=== PATIENT | male | born 1985 | race Asian ===

== ENCOUNTER 2017-08-04 19:27 | Emergency (ER) | payer SELFPAY ==
[2017-08-04 20:41] LABS: ABS Basophils 0 10^3/ul (0-0.2); ABS Eosinophils 0 10^3/ul (0-0.6); ABS Lymphocytes 1.2 10^3/ul (1.0-4.8); ABS Monocytes 0.5 10^3/ul (0-0.8); ABS Neutrophils 7.1 10^3/ul (1.5-7.7); ABS Nucleated RBC 0.01 10^3/ul; Eosinophil % 0 % (0-6); Hematocrit 47 % (42-52); Hemoglobin 16.2 g/dl (14.0-18.0); Lymphocyte % 13.7 % (25-47); Mean Corpuscular HGB Conc 35 g/dl (31-36); Mean Corpuscular Hemoglobin 31 pg (27-31); Mean Corpuscular Volume 91 fL (80-94); Mean Platelet Volume 7 um3 (7.4-10.4); Nucleated Red Blood Cells % 0.1; Platelet Count 324 10^3/ul (150-450); Red Blood Count 5.18 10^6/ul (4.0-5.4); Red Cell Distribution Width 13 % (10.5-15); White Blood Count 8.9 10^3/ul (3.5-10.8)
[2017-08-04 20:56] LABS: EGFR Non-African American 97.8 (>60)
[2017-08-04] MEDS ORDERED: Iohexol 300* (CONTRAST) 10 ML SDV IV ONE (21:38)
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
[2017-08-04 23:25] VITALS: BP 111/65
== END 2017-08-04 23:25 | disposition home or self-care (01) ==
LOC: ED 19:27
DX: R07.9 Chest pain, unspecified (principal); F41.9 Anxiety disorder, unspecified; R07.89 Other chest pain; R00.0 Tachycardia, unspecified; Z04.1 Encounter for examination and observation following transport accident
CPT/HCPCS: 36415; 71260; 80053; 83605; 83735; 84484; 85025; 85730; 93005; 99282; Q9967

== ENCOUNTER 2018-12-20 10:13 | Emergency (ER) | payer OTHER ==
[2018-12-20] MEDS ORDERED: Ondansetron INJ* 2 MG/ML VIAL IV ONE (10:38)
[2018-12-20] MEDS ORDERED: Morphine 4 MG/ML VIAL (1 ml) 4 MG/ML VIAL IV ONE (10:38)
[2018-12-20] MEDS ORDERED: Ketorolac INJ* 30 MG/ML 1 ML VIAL IM ONE (10:38)
--- NOTE | 2018-12-20 10:45 | ED ---
Abdominal Pain/Male - HPI Summary HPI Summary: Patient is an otherwise healthy 33-year-old male presenting to the ED with severe left-sided flank pain rated 9/10 which was acute onset this morning and has remained constant. He is also endorsing suprapubic tenderness. Left-sided flank pain radiates to the LLQ and down into the groin. No history of kidney stones. No history of UTI. Takes no medications. Endorses nausea, but no episodes of emesis yet. Denies any constipation or diarrhea. Denies any other abdominal pain throughout. Denies any fevers, sweats, chills. Symptoms are worse with palpation, better with rest. Denies any UTI symptoms or course hematuria. - History of Current Complaint Chief Complaint: EDFlankPain Stated Complaint: POSS KIDNEY STONE PER PT Time Seen by Provider: 12/20/18 10:32 Hx Obtained From: Patient Onset/Duration: Sudden Onset Timing: Constant Severity Initially: Severe Severity Currently: Severe Pain Intensity: 8 Pain Scale Used: 0-10 Numeric Location: Flank Radiates: Yes Radiates to: LLQ, Inguinal Character: Sharp, Burning Aggravating Factor(s): Nothing Alleviating Factor(s): Position Associated Signs And Symptoms: Positive: Negative, Back Pain, Nausea. Negative : Diaphoresis, Fever, Cough, Chest Pain, Constipation, Blood in Stool, Urinary Symptoms, Decreased Appetite, Vomiting, Diarrhea - Risk Factors Testicular Torsion: Negative Cardiac Risk Factors: Negative - Allergies/Home Medications Allergies/Adverse Reactions: Allergies Allergy/AdvReac Type Severity Reaction Status Date / Time No Known Allergies Allergy Verified 08/04/17 19:40 PMH/Surg Hx/FS Hx/Imm Hx Previously Healthy: Yes Endocrine/Hematology History: Denies: Hx Anticoagulant Therapy, Hx Blood Disorders Cardiovascular History: Reports: Other Cardiovascular Problems/Disorders - tachycardia and chest pain of unknown origin x years Respiratory History: Denies: Hx Asthma, Hx Chronic Obstructive Pulmonary Disease (COPD), Hx Pneumonia, Hx Pulmonary Edema GI History: Reports: Other GI Disorders - H/o h. pylori years ago Musculoskeletal History: Denies: Hx Arthritis Sensory History: Reports: Hx Contacts or Glasses Opthamlomology History: Reports: Hx Contacts or Glasses Psychiatric History: Reports: Hx Anxiety - not treated - Immunization History Hx Pertussis Vaccination: No Immunizations Up to Date: Yes Infectious Disease History: No Infectious Disease History: Denies: Traveled Outside the [place] in Last 30 Days - Family History Known Family History: Positive: None - Social History Occupation: Employed Full-time Lives: With Family Alcohol Use: None Hx Substance Use: No Substance Use Type: Reports: None Hx Tobacco Use: No Smoking Status (MU): Never Smoked Tobacco Review of Systems Constitutional: Negative Negative: Fever, Chills, Fatigue Negative: Palpitations, Chest Pain Negative: Shortness Of Breath, Cough Positive: see HPI, flank pain. Negative: burning, dysuria, discharge, incontinence, pain, urgency Negative: Rash, Bruising Neurological: Negative All Other Systems Reviewed And Are Negative: Yes Physical Exam Triage Information Reviewed: Yes Vital Signs On Initial Exam: Initial Vitals Temp Pulse Resp BP Pulse Ox 96.3 F 128 18 122/102 96 12/20/18 10:28 12/20/18 10:28 12/20/18 10:28 12/20/18 10:28 12/20/18 10:28 Vital Signs Reviewed: Yes Appearance: Positive: Well-Appearing, Well-Nourished Skin: Positive: Warm, Skin Color Reflects Adequate Perfusion Head/Face: Positive: Normal Head/Face Inspection Eyes: Positive: EOMI, Conjunctiva Clear Neck: Positive: Supple, No Lymphadenopathy Respiratory/Lung Sounds: Positive: Clear to Auscultation, Breath Sounds Present Cardiovascular: Positive: RRR, Pulses are Symmetrical in both Upper and Lower Extremities Abdomen Description: Positive: Nontender, Soft, CVA Tenderness (L). Negative: CVA Tenderness (R), Hepatomegaly, McBurney's Point Tenderness, Peritoneal Signs Musculoskeletal: Positive: Normal, Strength/ROM Intact Neurological: Positive: Speech Normal Psychiatric: Positive: Normal, Affect/Mood Appropriate Diagnostics - Vital Signs Vital Signs Temp Pulse Resp BP Pulse Ox 12/20/18 10:28 96.3 F 128 18 122/102 96 - Laboratory Result Diagrams: 12/20/18 11:00 12/20/18 11:00 Lab Statement: Any lab studies that have been ordered have been reviewed, and results considered in the medical decision making process. - CT CT abd/pelvis CT Interpretation Completed By: ED Physician - Rosalia Emerson PA-C, Radiologist - IMPRESSION: Tiny calculi in the urinary bladder which may represent recently passed calculi. Mild left hydronephrosis and hydroureter is noted. Abdominal Pain Male Course/Dx - Course Course Of Treatment: During the course of treatment, the patient is evaluated for left-sided flank pain. He endorses this pain is 9/10 on arrival accompanied with nausea without vomiting. He denies any fevers, sweats, chills. On arrival into the ED his temperature is 96.3, tachycardia at 128, respirations 18 and BP of 122/102. Patient appears in distress and diaphoretic. On physical examination, lungs CTA, tachycardic with regular rhythm. Left CVA tenderness and left lower quadrant tenderness on light palpation. No pain throughout the abdominal area on my palpation otherwise. He is given Zofran, morphine, Toradol and normal saline. CT abdomen/pelvis obtained:IMPRESSION: Tiny calculi in the urinary bladder which may represent recently passed. calculi. Mild left hydronephrosis and hydroureter is noted. Due to passed stone, patient will be discharged with pain control. UA obtained which shows no infection. Patient denies any pain to the left flank, however is is now endorsing mild 2/10 pain to the left lower quadrant. This is consistent with recently passed stone and cramping. He is given a prescription for tramadol. He will follow up with urology if any symptoms worsen. He is given a strainer upon discharge. - Diagnoses Differential Diagnosis/HQI/PQRI: Other - Kidney stone, UTI, flank pain, abdominal pain, nausea Provider Diagnoses: Kidney stone Discharge - Sign-Out/Discharge Documenting (check all that apply): Patient Departure Patient Received Moderate/Deep Sedation with Procedure: No - Discharge Plan Condition: Stable Disposition: HOME Prescriptions: traMADol TAB* [Ultram*] 50 mg PO Q8H PRN #6 tab MDD 3 PRN Reason: Pain Patient Education Materials: Kidney Stones (ED) Referrals: [facility] - [facility] [Primary Care Provider] - Jayant Miramontes MD [Medical Doctor] - Additional Instructions: Please follow up with Dr. Miramontes if you develop any worsening symptoms Tramadol as needed for pain control - Billing Disposition and Condition Condition: STABLE Disposition: Home
[2018-12-20] MEDS: NS 0.9% 1000 ML** 2,000 ML IV ONE (11:01)
[2018-12-20 11:07] LABS: ABS Lymphocytes 1.5 10^3/ul (1.0-4.8); ABS Monocytes 0.5 10^3/ul (0-0.8); ABS Neutrophils 8.9 10^3/ul (1.5-7.7); Eosinophil % 0.2 %; Hematocrit 48 % (42-52); Hemoglobin 15.9 g/dL (14.0-18.0); Lymphocyte % 13.4 %; Mean Corpuscular HGB Conc 33 g/dL (31-36); Mean Corpuscular Hemoglobin 30 pg (27-31); Mean Corpuscular Volume 92 fL (80-94); Mean Platelet Volume 7.2 fL (7.4-10.4); Nucleated Red Blood Cells % 0.1; Platelet Count 283 10^3/uL (150-450); Red Blood Count 5.25 10^6 /uL (4.18-5.48); Red Cell Distribution Width 13 % (10.5-15); White Blood Count 10.9 10^3/uL (3.5-10.8)
[2018-12-20 11:25] VITALS: BP 142/93
[2018-12-20 11:27] LABS: ALT 39 U/L (7-52); AST 24 U/L (13-39); Albumin 4.9 g/dL (3.2-5.2); Alkaline Phosphatase 64 U/L (34-104); Anion Gap 9 mmol/L (2-11); BUN/Creatinine Ratio 12.5 (8-20); Blood Urea Nitrogen 14 mg/dL (6-24); C Reactive Protein < 1.00 mg/L (<8.01); CO2 Carbon Dioxide 25 mmol/L (22-32); Calcium 9.8 mg/dL (8.6-10.3); Chloride 104 mmol/L (101-111); EGFR African American 91.9 (>60); Globulin 2.5 g/dL (2-4); Glucose 136 mg/dL (70-100); Magnesium 1.9 mg/dL (1.9-2.7); Potassium 3.8 mmol/L (3.5-5.0); Sodium 138 mmol/L (135-145); Total Protein 7.4 g/dL (6.4-8.9)
[2018-12-20 13:05] LABS: Urine Appearance Clear; Urine Bacteria Absent (Absent); Urine Bilirubin Negative (Negative); Urine Blood 1+ (Negative); Urine Color Yellow; Urine Glucose Negative (Negative); Urine Ketones Trace (Negative); Urine Nitrite Negative (Negative); Urine Protein Negative (Negative); Urine Red Blood Cell 1+(3-5/hpf) (Absent); Urine Specific Gravity 1.011 (1.010-1.030); Urine Urobilinogen Negative (Negative); Urine White Blood Cell Trace(0-5/hpf) (Absent)
== END 2018-12-20 13:33 | disposition home or self-care (01) ==
LOC: ED 10:13
DX: N21.0 Calculus in bladder (principal); N13.30 Unspecified hydronephrosis; R11.0 Nausea; R00.0 Tachycardia, unspecified; R61 Generalized hyperhidrosis
CPT/HCPCS: 36415; 74176; 80053; 81003; 81015; 83605; 83690; 83735; 85025; 86140; 87086; 96361; 96372; 96374; 96375; 99283; J1885; J2270; J2405

== ENCOUNTER 2019-04-18 16:44 | Emergency (ER) | payer OTHER ==
--- OUTSIDE RECORDS SUMMARY | 2019-04-18 16:49 | XMS REPORT | Continuity of Care Document ---
:1985 External Reference #:[id number] Author Name Alex Sarkar, DO Address [address] [place] [address] Care Team Providers Name Role Phone Lien Goddard MD Care Team Information Bell Valet [phone] Problems Active Problems Provider Date Gastroesophageal reflux disease Meagan Mera PA-C Onset: 04/01/2019 Sore throat symptom Meagan Mera PA-C Onset: 03/01/2019 Abdominal pain Meagan Mera PA-C Onset: 03/01/2019 Epigastric pain Trace Bolden MD Onset: 09/26/2016 Social History Type Date Description Comments Sex Unknown Tobacco Use Start: Unknown Patient has never smoked Smoking Status Reviewed: 04/01/19 Patient has never smoked Allergies, Adverse Reactions, Alerts Description No Known Drug Allergies Medications Active Medications SIG Qnty Indications Ordering Provider Date Pantoprazole Sodium 1 by mouth 30tabs R10.10 Trace Bolden, 03/01/2019 20mg every day Tablets DR Immunizations Description No Information Available Vital Signs Date Vital Result Comment 04/01/2019 7:50am Height 66 inches 5'6" Weight 132.00 lb BP Systolic 128 mmHg BP Diastolic 87 mmHg Heart Rate 108 /min BMI (Body Mass Index) 21.3 kg/m2 03/01/2019 9:41am Height 66 inches 5'6" Weight 132.00 lb BP Systolic 133 mmHg BP Diastolic 93 mmHg Heart Rate 120 /min BMI (Body Mass Index) 21.3 kg/m2 Results Test Date Facility Test Result H/L Range Note Laboratory test 04/06/2019 [facility] Clotest SEE RESULT 1 finding BELOW Laboratory test 04/01/2019 [facility] Surgical SEE RESULT 2, 3 finding Pathology BELOW 1 SEE RESULT BELOW Name: JHONATAN OSBORN : [address]: Alex Sarkar DO Acct: [id number] Unit: [id number] AGE: 33 Location: [facility] Re04/06/19 SEX: M Status: DEP REF SPEC: [id number] DALY: 04/06/19-[address] [facility] [address]: Aelx Sarkar DO REQ: [id number] RECD: 04/06/19-3 STATUS: NOHEMI ANGELO DR: Kamille Zheng [employer]ANCE OFFICER _ SOURCE: GAS ANTRUM SPDESC: ORDERED: Clotest Procedure Result Reported Site Clotest Final 04/07/19- 0656 ML Clotest Negative * ML - Main Lab . END OF REPORT DEPARTMENT OF PATHOLOGY, [address] [place] [address] Piero Gonzalez M.D. Director [facility] # [id number] SEE RESULT BELOW Name: ANURAGJHONATAN : [address]: Alex Sarkar DO Acct: [id number] Unit: [id number] AGE: 33 Location: [facility] Re04/06/19 SEX: M Status: DEP REF SPEC: [id number] DALY: 04/06/19-[address]: Alex Sarkar DO REQ: [id number] RECD: 04/06/19-130 STATUS: NOHEMI ANGELO DR: Kamille Zheng [employer] FINANCE OFFICER _ SOURCE: GAS ANTRUM SPDESC: ORDERED: Clotest Procedure Result Reported Site Clotest Final 04/07/19- 655 ML Clotest Negative * ML - Main Lab . END OF REPORT DEPARTMENT OF PATHOLOGY, [address] [place] [address] Piero Gonzalez M.D. Director [facility] # [id number] 2 [id number] SEE RESULT BELOW Name: JHONATAN OSBORN : [address]: Alex Sarkar DO Acct: [id number] Unit: [id number] AGE: 33 Location: [facility] Re04/06/19 SEX: M Status: DEP REF SPEC: [id number] DALY: 04/01/19- SUBM DR: Alex Sarkar DO REQ: [id number] RECD: 04/06/19-1249 STATUS: CARON ANGELO DR: Kamille Zheng [employer] FINANCE OFFICER _ ORDERED: LEVEL 4/2 COMMENTS: [id number] FINAL DIAGNOSIS 1. Duodenum, biopsy: -- Benign small intestinal mucosa with no significant pathologic abnormalities. -- No evidence of villous blunting or increased intraepithelial lymphocytes. 2. Esophagus, distal, biopsy: -- Benign squamous and columnar-type mucosa with chronic inflammation. -- Intestinal metaplasia is absent. -- Dysplasia is absent. CLINICAL HISTORY Gastroesophageal reflux disease POST-OPERATIVE DIAGNOSIS EGD: esophagus ??? 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 normal; biopsy; duodenum ??? normal; biopsy GROSS DESCRIPTION 1. The specimen is received in formalin labeled, Biopsy Duodenum, and consists of a 0.5 x 0.5 x 0.1 cm aggregate of coker-pink irregular soft tissue fragments which is submitted entirely in one cassette. 2. The specimen is received in formalin labeled, Biopsy Distal Esophagus, and consists of a 0.5 x 0.5 x 0.1 cm aggregate of coker-pink irregular soft tissue fragments which is CONTINUED ON NEXT PAGE DEPARTMENT OF PATHOLOGY, [address] [place] [address] Piero Gonzalez M.D. Director [facility] # [id number] RUN DATE: 04/07/19 [facility] LAB LIVE PAGE 2 Patient: JHONATAN OSBORN [id number] (Continued) GROSS DESCRIPTION (Continued) submitted entirely in one cassette. Signed by and Reported on: Dania Finch MD 04/07/19 1148 END OF REPORT DEPARTMENT OF PATHOLOGY, [address] [place] [address] Piero Gonzalez M.D. Director [facility] # [id number] SEE RESULT BELOW Name: JHONATAN OSBORN : [address]: Alex Sarkar DO Acct: [id number] Unit: [id number] AGE: 33 Location: [facility] Re04/06/19 SEX: M Status: DEP REF SPEC: [id number] DALY: 04/01/19- [facility] DR: Alex Sarkar DO REQ: [id number] RECD: 04/06/19124 STATUS: CARON ANGELO DR: Kamille Zheng [employer] FIN[employer] OFFICER _ ORDERED: LEVEL 4/2 COMMENTS: [id number] FINAL DIAGNOSIS 1. Duodenum, biopsy: -- Benign small intestinal mucosa with no significant pathologic abnormalities. -- No evidence of villous blunting or increased intraepithelial lymphocytes. 2. Esophagus, distal, biopsy: -- Benign squamous and columnar-type mucosa with chronic inflammation. -- Intestinal metaplasia is absent. -- Dysplasia is absent. CLINICAL HISTORY Gastroesophageal reflux disease POST-OPERATIVE DIAGNOSIS EGD: esophagus ??? 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 normal; biopsy; duodenum ??? normal; biopsy GROSS DESCRIPTION 1. The specimen is received in formalin labeled, Biopsy Duodenum, and consists of a 0.5 x 0.5 x 0.1 cm aggregate of coker-pink irregular soft tissue fragments which is submitted entirely in one cassette. 2. The specimen is received in formalin labeled, Biopsy Distal Esophagus, and consists of a 0.5 x 0.5 x 0.1 cm aggregate of coker-pink irregular soft tissue fragments which is CONTINUED ON NEXT PAGE DEPARTMENT OF PATHOLOGY, [address] [place] [address] Piero Gonzalez M.D. Director [facility] # [id number] RUN DATE: 04/07/19 [facility] LAB LIVE PAGE 2 Patient: JHONATAN OSBORN [id number] (Continued) GROSS DESCRIPTION (Continued) submitted entirely in one cassette. Signed by and Reported on: Dania Finch MD 04/07/19 1148 END OF REPORT DEPARTMENT OF PATHOLOGY, [address] [place] [address] Piero Gonzalez M.D. Director [facility] # [id number] Procedures Description No Information Available Medical Devices Description No Information Available Encounters Type Date Location Provider Dx Diagnosis Office Visit 04/01/2019 [facility]astroenterology Meagan Connor R10.10 Upper abdominal 8:00a [facility], pain, unspecified PA-C K21.9 Gastro-esophageal reflux disease without esophagitis Office 03/01/2019 Gastroenterology Meagan Connor R10.10 Upper abdominal Visit 10:00a [facility], PA-C pain, unspecified R07.0 Pain in throat Assessments Date Code Description Provider 04/01/2019 R10.10 Upper abdominal pain, unspecified [facility], PA -C 04/01/2019 K21.9 Gastro-esophageal reflux disease without [facility], PA-C esophagitis 03/01/2019 R10.10 Upper abdominal pain, unspecified [facility], PA -C 03/01/2019 R07.0 Pain in throat Meagan L. [facility], PA-C Plan of Treatment No Information Available Functional Status Description No Information Available Mental Status Description No Information Available Referrals Description No Information Available
--- OUTSIDE RECORDS SUMMARY | 2019-04-18 16:49 | XMS REPORT | Continuity of Care Document ---
:1985 External Reference #:[id number] Author Name Meagan Mera PA-C Address [address] [place] [address] Care Team Providers Name Role Phone Lien Goddard MD Care Team Information Computer Game Designer [phone] Problems Active Problems Provider Date Gastroesophageal reflux [...] Trace Bolden, 03/01/2019 20mg every day Tablets Ranitidine HCL Unknown 150mg Tablets Immunizations Description No Information Available Vital Signs [...] BMI (Body Mass Index) 21.3 kg/m2 Results Description No Information Available Procedures Description No Information Available Medical Devices Description No Information Available Encounters Type Date Location Provider Dx Diagnosis Office Visit 03/01/2019 Gastroenterology Meagan Connor R10.10 Upper abdominal 10:00a [facility], pain, unspecified [facility] R07.0 Pain in throat Assessments Date Code Description Provider 04/01/2019 R10.10 Upper abdominal pain, unspecified [facility] Berrios 04/01/2019 K21.9 Gastro-esophageal reflux disease without Meagan Mera PA-C esophagitis 03/01/2019 R10.10 Upper abdominal pain, unspecified [facility] 03/01/2019 R07.0 Pain in throat Meagan Mera PA-C Plan of Treatment Future Appointment(s):04/06/2019 9:30 am - Alex Sarkar DO at [facility] Apitno2604/01/2019 - PAVEL Berrios10.10 Upper abdominal pain, ougjcaddocpI89.9 Gastro-esophageal reflux disease without esophagitis Functional Status Description No Information Available Mental Status Description No Information Available Referrals Description No Information Available
--- OUTSIDE RECORDS SUMMARY | 2019-04-18 16:49 | XMS REPORT | Continuity of Care Document ---
:1985 External Reference #:[id number] Author Name Alex Sarkar, DO Address [address] [place] [address] Care Team Providers Name Role Phone Lien Goddard MD Care Team Information Roller Leveler [phone] Problems Active Problems Provider Date Gastroesophageal reflux [...] Result H/L Range Note Laboratory test 04/06/2019 [facility] Clotest SEE RESULT 1 finding BELOW Laboratory test 04/01/2019 [facility] Surgical SEE RESULT 2, 3 finding Pathology BELOW 1 SEE RESULT BELOW Name: JHONATAN OSBORN : [address]: Alex Sarkar DO Acct: [id number] Unit: [id number] AGE: 33 Location: [facility] Re04/06/19 SEX: M Status: DEP REF SPEC: [id number] DALY: 04/06/19-[address] [facility] [address]: Alex Sarkar DO REQ: [id number] RECD: 04/06/19-3 STATUS: NOHEMI ANGELO DR: Kamille Zheng [employer]SPORT DRIVER _ SOURCE: GAS ANTRUM SPDESC: ORDERED: Clotest Procedure Result Reported Site Clotest Final 04/07/19- 0656 ML Clotest Negative * ML - Main Lab . END OF REPORT DEPARTMENT OF PATHOLOGY, [address] [place] [address] Piero Gonzalez M.D. Director DAV[facility] # [id number] SEE RESULT BELOW Name: ANURAGJHONATAN : [address]: Alex Sarkar DO Acct: [id number] Unit: [id number] AGE: 33 Location: [facility] Re04/06/19 SEX: M Status: DEP REF SPEC: [id number] DALY: 04/06/19-[address]: Alex Sarkar DO REQ: [id number] RECD: 04/06/19-130 STATUS: NOHEMI ANGELO DR: Kamille Zheng AUTO TRANSPORT DRIVER _ SOURCE: GAS ANTRUM SPDESC: ORDERED: Clotest Procedure Result Reported Site Clotest Final 04/07/19- 655 ML Clotest Negative * ML - Main Lab . END OF REPORT DEPARTMENT OF PATHOLOGY, [address] [place] [address] Piero Gonzalez M.D. Director [facility] # [id number] 2 [id number] 3 SEE RESULT BELOW Name: JHONATAN OSBORN : [address]: Alex Sarkar DO Acct: [id number] Unit: [id number] AGE: 33 Location: [facility] Re04/06/19 SEX: M Status: DEP REF SPEC: [id number] DALY: 04/01/19- SUBM DR: Alex Sarkar DO REQ: [id number] RECD: 04/06/19-1249 STATUS: CARON ANGELO DR: Kamille Zheng AUT[employer] TRANSPORT DRIVER _ ORDERED: LEVEL 4/2 COMMENTS: [id number] FINAL DIAGNOSIS 1. Duodenum, biopsy: -- Benign [...] CONTINUED ON NEXT PAGE DEPARTMENT OF PATHOLOGY, [address] [place] [address] Piero Gonzalez M.D. Director [facility] # [id number] RUN DATE: 04/07/19 [facility] LAB LIVE PAGE 2 Patient: JHONATAN OSBORN [id number] (Continued) GROSS DESCRIPTION (Continued) submitted entirely in one cassette. Signed by and Reported on: Dania Finch MD 04/07/19 1148 END OF REPORT DEPARTMENT OF PATHOLOGY, [address] [place] [address] Piero Gonzalez M.D. Director [facility] # [id number] SEE RESULT BELOW Name: JHONATAN OSBORN : [address]: Alex Sarkar DO Acct: [id number] Unit: [id number] AGE: 33 Location: [facility] Re04/06/19 SEX: M Status: DEP REF SPEC: [id number] DALY: 04/01/19- [facility] DR: Alex Sarkar DO REQ: [id number] RECD: 04/06/19124 STATUS: CARON ANGELO DR: Kamille Zheng [employer]SPORT DRIVER _ ORDERED: LEVEL 4/2 COMMENTS: [id number] FINAL DIAGNOSIS 1. Duodenum, biopsy: -- Benign [...] CONTINUED ON NEXT PAGE DEPARTMENT OF PATHOLOGY, [address] [place] [address] Piero Gonzalez M.D. Director [facility] # [id number] RUN DATE: 04/07/19 [facility] LAB LIVE PAGE 2 Patient: JHONATAN OSBORN [id number] (Continued) GROSS DESCRIPTION (Continued) submitted entirely in one cassette. Signed by and Reported on: Dania Finch MD 04/07/19 1148 END OF REPORT DEPARTMENT OF PATHOLOGY, [address] [place] [address] Piero Gonzalez M.D. Director [facility] # [id number] Procedures Description No Information Available Medical Devices Description No Information Available Encounters Type Date Location Provider Dx Diagnosis Office Visit 04/01/2019 Gastroenterology Meagan Connor R10.10 Upper abdominal 8:00a [facility], pain, unspecified PA-C K21.9 Gastro-esophageal reflux disease without esophagitis Office 03/01/2019 Gastroenterology Meagan Connor R10.10 Upper abdominal Visit 10:00a [facility], PA-C pain, unspecified R07.0 Pain in [...]
[2019-04-18 17:12] VITALS: BP 134/83
--- NOTE | 2019-04-18 17:49 | UC ---
Complaint Male HPI - HPI Summary HPI Summary: 33-year-old male comes in with a chief complaint of increasing urinary frequency and polyuria for 2 days. He's been urinating large volumes more frequently. Also reports increased thirst. Also reports some lower back cramping. Denies any dysuria. Denies any anterior abdominal pain. Feels well otherwise. Does have history of kidney stones. Denies any pain associated with the kidney stones. No fevers or chills. Denies any burning with urination denies any testicular scrotal pain. - History of Current Complaint Chief Complaint: UCGU Stated Complaint: URINARY COMPLAINT Time Seen by Provider: 04/18/19 17:14 Pain Intensity: 2 - Allergies/Home Medications Allergies/Adverse Reactions: Allergies Allergy/AdvReac Type Severity Reaction Status Date / Time No Known Allergies Allergy Verified 04/18/19 17:12 PMH/Surg Hx/FS Hx/Imm Hx Previously Healthy: Yes - KIDNEY STONE Other History Of: Negative For: Anticoagulant Therapy - Surgical History Surgical History: Yes Surgery Procedure, Year, and Place: wisdom teeth - Family History Known Family History: Positive: None - Social History Alcohol Use: None Substance Use Type: None Smoking Status (MU): Never Smoked Tobacco Review of Systems All Other Systems Reviewed And Are Negative: Yes Constitutional: Positive: Negative Skin: Positive: Negative Eyes: Positive: Negative ENT: Positive: Negative Respiratory: Positive: Negative Cardiovascular: Positive: Negative Gastrointestinal: Positive: Negative Genitourinary: Positive: Frequency, Urgency Motor: Positive: Negative Neurovascular: Positive: Negative Musculoskeletal: Positive: Negative Neurological: Positive: Negative Psychological: Positive: Negative Is Patient Immunocompromised?: No Physical Exam Triage Information Reviewed: Yes Appearance: Well-Appearing, No Pain Distress, Well-Nourished Vital Signs: Initial Vital Signs Temp 100.1 F 04/18/19 17:05 Pulse 125 04/18/19 17:05 Resp 18 04/18/19 17:05 BP 134/83 04/18/19 17:05 Pulse Ox 98 04/18/19 17:05 Vital Signs Reviewed: Yes Eye Exam: Normal Neck: Positive: Supple Respiratory: Positive: Lungs clear, Normal breath sounds, No respiratory distress Cardiovascular: Positive: RRR Abdomen Description: Positive: Nontender, Soft. Negative: CVA Tenderness (R), CVA Tenderness (L) Bowel Sounds: Positive: Present Musculoskeletal: Positive: Strength Intact, ROM Intact Neurological: Positive: Alert, Muscle Tone Normal Psychological: Positive: Age Appropriate Behavior Skin Exam: Normal Complaint Male Course/Dx - Course Course Of Treatment: I discussed the urinalysis and blood sugar results with the patient. I sent the urine for culture. CBC CMP are pending. No signs of UTI on the urine however the possibility of occult prostate infection we'll cover her with Bactrim DS. Plan is for the patient to follow-up with urology. I discussed with him that if his condition worsened he needs to go the emergency department. - Differential Dx/Diagnosis Provider Diagnosis: Polyuria, Frequent urinary incontinence Discharge ED - Sign-Out/Discharge Documenting (check all that apply): Patient Departure All imaging exams completed and their final reports reviewed: No Studies - Discharge Plan Condition: Stable Disposition: HOME Prescriptions: Sulfamethox/Trimethoprim DS* [Bactrim DS 800/160 TAB*] 1 tab PO BID #18 tab Patient Education Materials: Polyuria (ED), Urinary Urgency and Frequency (DC) Referrals: Norm ALEXIS,Kamille Cam [Primary Care Provider] - Jayant Miramontes MD [Medical Doctor] - Rohit Amado MD [Medical Doctor] - Additional Instructions: FOLLOW UP WITH UROLOGY. GET RECHECKED SOONER IF YOUR CONDITION WORSENS; PAIN, FEVER, YOU FEEL ILL OR ANY QUESTIONS OR CONCERNS. - Billing Disposition and Condition Condition: STABLE Disposition: Home
[2019-04-18] MEDS ORDERED: Sulfamethox/Trimethoprim DS 800/160* TAB PO ONE ×2 (18:12→18:13)
[2019-04-19 11:50] LABS: ABS Lymphocytes 1.4 10^3/ul (1.0-4.8); ABS Monocytes 0.4 10^3/ul (0-0.8); ABS Neutrophils 6.8 10^3/ul (1.5-7.7); Hematocrit 47 % (42-52); Hemoglobin 16.1 g/dL (14.0-18.0); Lymphocyte % 16.3 %; Mean Corpuscular HGB Conc 34 g/dL (31-36); Mean Corpuscular Hemoglobin 31 pg (27-31); Mean Corpuscular Volume 90 fL (80-94); Mean Platelet Volume 8.1 fL (7.4-10.4); Platelet Count 313 10^3/uL (150-450); Red Blood Count 5.23 10^6 /uL (4.18-5.48); Red Cell Distribution Width 13 % (10-15); White Blood Count 8.7 10^3/uL (3.5-10.8)
[2019-04-19 11:51] LABS: Eosinophil % 0.2 %
[2019-04-19 12:04] LABS: Calcium 9.6 mg/dL (8.6-10.3); Potassium 4.1 mmol/L (3.5-5.0); Total Bilirubin 0.3 mg/dL (0.2-1.0)
[2019-04-19 12:11] LABS: Albumin/Globulin Ratio 2.4 (1-3); EGFR African American 124.7 (>60); EGFR Non-African American 103.1 (>60); Globulin 2.1 g/dL (2-4); Total Protein 7.1 g/dL (6.4-8.9)
== END 2019-04-18 18:43 | disposition home or self-care (01) ==
LOC: UCEAST 16:44
DX: R35.0 Frequency of micturition (principal); R35.8 Other polyuria
CPT/HCPCS: 36415; 80053; 81003; 85025; 87086; 99212; A9270-GY; G0463